=== PATIENT | female | born 1990 | race American Indian/Alaskan Native ===

== ENCOUNTER 2017-09-18 00:29 | Emergency (ER) | payer OTHER ==
[2017-09-18 00:29] VITALS: BMI 22.8
[2017-09-18 00:52] VITALS: O2SAT 100
--- NOTE | 2017-09-18 00:54 | ED PDOC ---
Arrival/HPI <Joe Gaona - Last Filed: 09/18/17 01:13> - General Historian: Patient - History of Present Illness Time/Duration: 1 week Symptom Onset: Gradual Symptom Course: Improving Quality: Tightness <Carlos Smith - Last Filed: 09/18/17 06:34> - General Chief Complaint: Medical Clearance Time Seen by Provider: 09/18/17 00:31 - History of Present Illness Narrative History of Present Illness (Text): 09/18/17 00:51 This is a 27 yo female, originally from [facility], with past medical hx of asthma and TB, presenting with chief complaint chest pain. Pain is left sided, no radiation. Has been going on for 1 week. Also reports sob with hx of asthma. Has been using rescue inhaler but no relief. Also reports cough. Pain better now. 4/10, otherwise was staying same, not better or worse. Pain comes and goes , cant say how long it stays for. Tightness sensation. Says never happened before. No fevers/chills. Reports cough. PMH: asthma, TB PSH: None Allergies: NKDA FH: hypertension, asthma Home meds: albuterol, advair Social hx: denies smoking, social drinker, denies drug use. Born in [facility]. ( Carlos Smith) Past Medical History - Provider Review Nursing Documentation Reviewed: Yes - Travel History Have you recently traveled outside [place] w/in the past 3 mons?: No - Infectious Disease Hx of Infectious Diseases: None - Tetanus Immunization Tetanus Immunization: Unknown - Reproductive Menopause: No - Cardiac Hx Cardiac Disorders: No - Pulmonary Hx Asthma: Yes - Neurological Hx Neurological Disorder: No - HEENT Hx HEENT Disorder: No - Renal Hx Renal Disorder: No - Endocrine/Metabolic Hx Endocrine Disorders: No - Hematological/Oncological Hx Blood Disorders: No - Integumentary Hx Dermatological Disorder: No - Musculoskeletal/Rheumatological Hx Musculoskeletal Disorders: No - Gastrointestinal Hx Gastrointestinal Disorders: No - Genitourinary/Gynecological Hx Genitourinary Disorders: No - Psychiatric Hx Psychophysiologic Disorder: No Hx Substance Use: No - Anesthesia Hx Anesthesia: No <Carlos Smith - Last Filed: 09/18/17 06:34> Family/Social History - Physician Review Nursing Documentation Reviewed: Yes Family/Social History: Hypertension Smoking Status: Never Smoked Hx Alcohol Use: Yes Frequency of alcohol use: Socially Hx Substance Use: No Hx Substance Use Treatment: No <Carlos Smith - Last Filed: 09/18/17 06:34> Allergies/Home Meds <Joe Gaona - Last Filed: 09/18/17 01:13> <Carlos Smith - Last Filed: 09/18/17 06:34> Allergies/Adverse Reactions: Allergies No Known Allergies Allergy (Verified 09/18/17 00:42) Home Medications: Home Meds Medication Instructions Recorded Confirmed Albuterol 0.083% [Albuterol 0.083% 2.5 mg IH PRN PRN 09/18/17 09/18/17 Inhal Desire (2.5 mg/3 ml) UD] Fluticasone/Salmeterol 100/50 1 dsk IH TID 09/18/17 09/18/17 [Advair Diskus 100/50] Review of Systems - Review of Systems Constitutional: absent: Fatigue, Fevers Eyes: absent: Vision Changes, Photophobia ENT: absent: Hearing Changes, Tinnitus Respiratory: SOB, Cough Cardiovascular: Chest Pain. absent: Palpitations Gastrointestinal: absent: Abdominal Pain, Stool Changes Genitourinary Female: absent: Dysuria, Frequency Musculoskeletal: absent: Arthralgias, Back Pain Skin: absent: Rash, Pruritis Neurological: absent: Headache, Dizziness Endocrine: absent: Diaphoresis, Polyuria Hemo/Lymphatic: absent: Adenopathy, Easy Bleeding Psychiatric: absent: Anxiety, Depression <Carlos Smith - Last Filed: 09/18/17 06:34> Physical Exam Vital Signs Reviewed: Yes Mental Status: Positive for: Alert and Oriented X 3 - Systems Exam Head: Present: Atraumatic, Normocephalic Pupils: Present: PERRL Extroacular Muscles: Present: EOMI Mouth: Present: Moist Mucous Membranes Neck: Present: Normal Range of Motion. No: Meningeal Signs Respiratory/Chest: Present: Wheezes Cardiovascular: Present: Regular Rate and Rhythm, Normal S1, S2 Abdomen: No: Tenderness, Distention Upper Extremity: Present: Normal Inspection. No: Cyanosis, Edema Lower Extremity: Present: Normal Inspection. No: Edema Neurological: Present: CN II-XII Intact, Speech Normal Skin: Present: Warm, Dry Psychiatric: Present: Alert, Oriented x 3, Normal Insight, Normal Concentration <Carlos Smith - Last Filed: 09/18/17 06:34> Vital Signs Temp Pulse Resp BP Pulse Ox 09/18/17 04:00 97.9 F 81 18 121/76 100 09/18/17 02:29 97.8 F 78 19 115/71 100 09/18/17 00:51 85 18 129/87 100 09/18/17 00:46 19 100 09/18/17 00:42 97.7 F Medical Decision Making <Joe Gaona - Last Filed: 09/18/17 01:13> <Carlos Smith - Last Filed: 09/18/17 06:34> ED Course and Treatment: Patient Seen With Resident: In agreement with resident note. Patient was seen and evaluated with resident, came up with plan and treatment together. (Joe Gaona) - Lab Interpretations Lab Results: 09/18/17 01:00 09/18/17 01:00 Lab Results 09/18/17 02:16: Influenza Typ A,B (EIA) Negative for flu a/b 09/18/17 01:05: Urine HCG, Qual Negative 09/18/17 01:05: Urine Opiates Screen Negative, Urine Methadone Screen Negative, Ur Barbiturates Screen Negative, Ur Phencyclidine Scrn Negative, Ur Amphetamines Screen Negative, U Benzodiazepines Scrn Negative, U Oth Cocaine Metabols Negative, U Cannabinoids Screen Negative 09/18/17 01:00: Sodium 137, Potassium 4.1, Chloride 104, Carbon Dioxide 27, Anion Gap 10, BUN 12, Creatinine 0.8, Est GFR ( Amer) > 60, Est GFR (Non- Af Amer) > 60, Random Glucose 107, Calcium 9.7, Total Bilirubin 0.4, AST 41 H, ALT 46, Alkaline Phosphatase 74, Troponin I < 0.01, Total Protein 7.8, Albumin 4.3, Globulin 3.5, Albumin/Globulin Ratio 1.2 09/18/17 01:00: WBC 8.6 D, RBC 4.63, Hgb 13.4, Hct 40.2, MCV 86.8, MCH 28.9, MCHC 33.3, RDW 13.3, Plt Count 335, MPV 9.8, Gran % 42.1 L, Lymph % (Auto) 46.0 H, [place] % (Auto) 7.6 H, Eos % (Auto) 3.4, Baso % (Auto) 0.9, Gran # 3.61, Lymph # 4.0 H, [place] # 0.7 H, Eos # 0.3, Baso # 0.08 - RAD Interpretation Radiology Orders: 09/18/17 00:49 CXR [CHEST TWO VIEWS (PA/LAT)] [RAD] Stat - Medication Orders Current Medication Orders: Discontinued Medications Albuterol/Ipratropium (Duoneb 3 Mg/0.5 Mg (3 Ml) Ud) 3 ml IH Q15M NAEEM Stop: 09/18/17 01:31 Last Admin: 09/18/17 03:22 Dose: 3 ml Methylprednisolone (Solu-Medrol) 125 mg IVP STAT STA Stop: 09/18/17 01:58 Last Admin: 09/18/17 02:14 Dose: 125 mg IVP Administration Document 09/18/17 02:14 AB (Rec: 09/18/17 02:16 [facility] [place]-ED-19) Charges for Administration # of IVP Administrations 1 - Scribe Statement The provider has reviewed the documentation as recorded by the Scribe <Joe Gaona - Last Filed: 09/18/17 01:13> <Carlos Smith - Last Filed: 09/18/17 06:34> - Scribe Statement Alivia Kohli Provider Scribe Attestation: All medical record entries made by the Scribe were at my direction and personally dictated by me. I have reviewed the chart and agree that the record accurately reflects my personal performance of the history, physical exam, medical decision making, and the department course for this patient. I have also personally directed, reviewed, and agree with the discharge instructions and disposition. (Joe Gaona) Disposition/Present on Arrival <Joe Gaona - Last Filed: 09/18/17 01:13> - Present on Arrival Any Indicators Present on Arrival: No History of DVT/PE: No History of Uncontrolled Diabetes: No Urinary Catheter: No History of Decub. Ulcer: No History Surgical Site Infection Following: None - Disposition Have Diagnosis and Disposition been Completed?: Yes Disposition Time: 03:00 <Carlos Smith - Last Filed: 09/18/17 06:34> - Disposition Diagnosis: Asthma Disposition: HOME/ ROUTINE Condition: STABLE Discharge Instructions (ExitCare): Asthma (ED) Prescriptions: Azithromycin [Z-Emil] 250 mg PO DAILY #6 tab predniSONE [Prednisone] 20 mg PO TID #15 tab Forms: [employer] ([place])
[2017-09-18 01:11] LABS: BASO # 0.08 K/mm3 (0.0-2.0); BASO % 0.9 % (0.0-3.0); EOS # 0.3 (0.0-0.7); EOS % 3.4 % (1.5-5.0); GRAN # 3.61 (1.4-6.5); GRAN % 42.1 % (50.0-68.0); HEMATOCRIT 40.2 % (36.0-48.0); MEAN CELL VOLUME 86.8 fl (80.0-105.0); MEAN CORPUSCULAR HEMOGLOBIN 28.9 pg (25.0-35.0); MEAN CORPUSCULAR HGB CONC 33.3 g/dl (31.0-37.0); MEAN PLATELET VOLUME 9.8 fl (7.0-11.0); MONO # 0.7 (0.1-0.6); MONO % 7.6 % (1.0-6.0); RED CELL DISTRIBUTION WIDTH 13.3 % (11.5-14.5); WHITE BLOOD COUNT 8.6 10^3/ul (4.5-11.0)
[2017-09-18] MEDS: Albuterol-Ipratrop 3 mg / 0.5 (3 ml) UD IH SCH ×3 (01:18→03:22)
[2017-09-18 01:23] LABS: ALB/GLOB RATIO 1.2 (1.1-1.8); ALKALINE PHOSPHATASE 74 U/L (38-126); ALT/SGPT 46 U/L (7-56); AST/SGOT 41 U/L (14-36); BILIRUBIN,TOTAL 0.4 mg/dL (0.2-1.3); BLOOD UREA NITROGEN 12 mg/dL (7-21); CALCIUM 9.7 mg/dL (8.4-10.5); CARBON DIOXIDE 27 mmol/L (21-33); CHLORIDE 104 mmol/L (98-107); GFR AFRICAN-AMERICAN > 60; GLUCOSE,RANDOM 107 mg/dL (70-110); POTASSIUM 4.1 mmol/L (3.6-5.0); SODIUM 137 mmol/L (132-148); TOTAL PROTEIN 7.8 g/dL (5.8-8.3)
[2017-09-18 01:34] LABS: TROPONIN I < 0.01 ng/mL
[2017-09-18 04:32] VITALS: BP 121/76; PULSE 81; RESP 18; TEMP 97.9
--- NOTE | 2017-09-18 08:37 | RAD ---
HISTORY: chest pain COMPARISON: 02/01/2016 TECHNIQUE: Chest PA and lateral FINDINGS: LUNGS: There is mild peribronchial thickening. There is dense scarring in the left apex medially. CT may be indicated for further evaluation. PLEURA: No significant pleural effusion identified. No pneumothorax apparent. CARDIOVASCULAR: Normal. OSSEOUS STRUCTURES: No significant abnormalities. VISUALIZED UPPER ABDOMEN: Normal. OTHER FINDINGS: None. IMPRESSION: There is mild peribronchial thickening. There is dense scarring in the left apex medially. CT may be indicated for further evaluation.
--- NOTE | 2017-09-18 19:07 | CARD ---
APPROVED REPORT EKG Measurement Heart [id number] <Conclusion> Normal sinus rhythm Normal ECG
--- NOTE | 2017-09-19 14:38 | ED PDOC ---
ED Additional Note - Physician Additional Note Physician Additional Note: Chest x-ray was placed into the PA review folder Spoke with patient regarding chest x-ray which showed scarring of the left apex. Patient with a history of tuberculosis in the past. She is currently feeling better. Denies shortness of breath or pain. Denies fevers or chills. Patient was advised to follow-up with her primary care physician for an outpatient CAT scan of the chest to further evaluate dense scarring located in the left apex.
== END 2017-09-18 05:04 | disposition home or self-care (01) ==
LOC: ED 00:29
DX: J45.909 Unspecified asthma, uncomplicated (principal)
CPT/HCPCS: 71020; 80053; 80324; 80345; 80346; 80349; 80353; 80358; 80361; 83992; 84484; 84703; 85025; 86480; 87804; 93005; 96374; 99285; J2930